=== PATIENT | male | born 1975 | race Two or more races ===

== ENCOUNTER 2021-01-01 14:30 | Emergency (ER) | payer OTHER ==
[~2021-01-01] VITALS: Ht 188 cm; Wt 104.3 kg
== END 2021-01-01 15:30 | disposition home or self-care (01) ==
LOC: ER 14:30
DX: S61.212A Laceration without foreign body of right middle finger without damage to nail, initial encounter (principal); W26.8XXA Contact with other sharp object(s), not elsewhere classified, initial encounter; Y92.89 Other specified places as the place of occurrence of the external cause

== ENCOUNTER 2021-01-22 12:32 | Emergency (ER) | payer OTHER ==
[~2021-01-22] VITALS: Ht 193 cm; Wt 104.3 kg
== END 2021-01-22 14:57 | disposition home or self-care (01) ==
LOC: ER 12:32
DX: Z48.02 Encounter for removal of sutures (principal)

== ENCOUNTER 2022-10-30 19:28 | Emergency (ER) | payer OTHER ==
[~2022-10-30] VITALS: Ht 188 cm; Wt 117.9 kg
== END 2022-10-30 23:47 | disposition home or self-care (01) ==
LOC: ER 19:28
DX: H81.10 Benign paroxysmal vertigo, unspecified ear (principal)